=== PATIENT | female | born 1990 | race Caucasian/White ===

== ENCOUNTER 2020-09-08 12:51 | Outpatient (CLI) | payer OTHER ==
[~2020-09-08 12:51] MED LIST: CEFUROXIME500 MG PO; DIFLUCAN150 MG PO; HYDROCODON-ACE1 EAC3 PO; IBUPROFEN800 MG PO; OMNICEF 300 MG300 MG PO; PERCOCET 5/325 T1 EA PO; PYRIDIUM200 MG PO; TORADOL 10 MG T10 MG PO; ZOFRAN ODT 4 MG4 MG PO; ZOFRAN4 MG PO
== END 2020-09-08 16:16 | disposition home or self-care (01) ==
LOC: GENOP 12:51
DX: O13.3 Gestational [pregnancy-induced] hypertension without significant proteinuria, third trimester (principal); O99.891 Other specified diseases and conditions complicating pregnancy; R06.02 Shortness of breath; R10.10 Upper abdominal pain, unspecified; O99.333 Smoking (tobacco) complicating pregnancy, third trimester; F17.290 Nicotine dependence, other tobacco product, uncomplicated; O99.343 Other mental disorders complicating pregnancy, third trimester; F41.9 Anxiety disorder, unspecified; F32.9 Major depressive disorder, single episode, unspecified; O99.513 Diseases of the respiratory system complicating pregnancy, third trimester; J45.909 Unspecified asthma, uncomplicated; O99.013 Anemia complicating pregnancy, third trimester; D64.9 Anemia, unspecified; O99.283 Endocrine, nutritional and metabolic diseases complicating pregnancy, third trimester; E28.2 Polycystic ovarian syndrome; O24.913 Unspecified diabetes mellitus in pregnancy, third trimester; Z91.048 Other nonmedicinal substance allergy status; Z79.899 Other long term (current) drug therapy; Z3A.33 33 weeks gestation of pregnancy
CPT/HCPCS: 76815; 81001; 93005

== ENCOUNTER → 2020-09-12 | Outpatient (CLI) | payer OTHER | LOC: GENOP 13:45 | DX: O99.891 Other specified diseases and conditions complicating pregnancy (principal); N89.8 Other specified noninflammatory disorders of vagina; M54.9 Dorsalgia, unspecified; O13.3 Gestational [pregnancy-induced] hypertension without significant proteinuria, third trimester; O99.333 Smoking (tobacco) complicating pregnancy, third trimester; F17.290 Nicotine dependence, other tobacco product, uncomplicated; O99.513 Diseases of the respiratory system complicating pregnancy, third trimester; J45.909 Unspecified asthma, uncomplicated; O99.013 Anemia complicating pregnancy, third trimester; D64.9 Anemia, unspecified; O99.283 Endocrine, nutritional and metabolic diseases complicating pregnancy, third trimester; E28.2 Polycystic ovarian syndrome; O99.343 Other mental disorders complicating pregnancy, third trimester; F41.9 Anxiety disorder, unspecified; F32.9 Major depressive disorder, single episode, unspecified; O99.213 Obesity complicating pregnancy, third trimester; E66.9 Obesity, unspecified; Z87.440 Personal history of urinary (tract) infections; Z98.1 Arthrodesis status; Z91.048 Other nonmedicinal substance allergy status; Z98.890 Other specified postprocedural states; Z79.899 Other long term (current) drug therapy; Z3A.34 34 weeks gestation of pregnancy | CPT/HCPCS: 81001; 83518; G0463 ==

== ENCOUNTER 2020-09-13 17:57 | Outpatient (CLI) | payer OTHER ==
[2020-09-13 19:07] LABS: HEMOGLOBIN 11.9 gm/dl (12.3-15.3); RED BLOOD COUNT 3.93 M/UL (4.00-5.10); WHITE BLOOD COUNT 12.1 K/UL (4.5-11.0)
[2020-09-13 19:59] LABS: BUN/CREATININE RATIO 9 (0-10)
== END 2020-09-13 20:16 | disposition other institution (70) ==
LOC: GENOP 17:57
PROVIDERS: Obstetrics & Gynecology
DX: O14.93 Unspecified pre-eclampsia, third trimester (principal); Z3A.33 33 weeks gestation of pregnancy; Z20.822 Contact with and (suspected) exposure to COVID-19
CPT/HCPCS: 36415; 80053; 81001; 83615; 84550; 85025; 96365; J3475; J7120; U0002

== ENCOUNTER → 2020-11-17 | Outpatient (CLI) | payer OTHER | LOC: HEART 5 09:05 | DX: J45.909 Unspecified asthma, uncomplicated (principal) | CPT/HCPCS: 94010 ==

== ENCOUNTER 2021-04-20 10:08 | Emergency (ER) | payer OTHER ==
[2021-04-20 10:35] LABS: HEMOGLOBIN 14.8 gm/dl (12.3-15.3); RED BLOOD COUNT 5.06 M/UL (4.00-5.10); WHITE BLOOD COUNT 5.1 K/UL (4.5-11.0)
[2021-04-20 11:00] LABS: BUN/CREATININE RATIO 17 (0-10)
== END 2021-04-20 13:35 | disposition left against medical advice (07) ==
LOC: ER1 10:08
PROVIDERS: Emergency Medicine
DX: R10.31 Right lower quadrant pain (principal)
CPT/HCPCS: 80053; 81001; 83690; 84703; 85025; 87086; 99283; Q9967